=== PATIENT | male | born 1950 | race Caucasian/White ===

== ENCOUNTER 2021-11-13 15:07 | Emergency (ER) | payer OTHER ==
[~2021-11-13] VITALS: Ht 177.8 cm; Wt 88.5 kg
[2021-11-13] MEDS ORDERED: paxlovid PO (15:34)
--- NOTE | 2021-11-13 15:42 | NUR ---
Gave pt RX and d/c instructions, pt verbalized understanding.
== END 2021-11-13 15:48 | disposition home or self-care (01) ==
LOC: ER 15:07
DX: U07.1 COVID-19 (principal); R51.9 Headache, unspecified
CPT/HCPCS: A4663